=== PATIENT | female | born 1950 | race Caucasian/White ===

== ENCOUNTER → 2017-09-14 | Outpatient (CLI) | payer MEDICARE, OTHER ==
[~2017-09-14] MED LIST: ASPI-1471 PO; CALC600T63 PO; CHOL500045 PO; GEMF600T91 PO; IOPAMIDOL 76% 75 ML INFUS BTL 75 ML ONE; LEVO50TA86 PO; LEVO750T44 PO; MULT-1372 PO; OMEG300C PO; PRED20TA6 PO; SIMV-49 PO
[2017-09-14 09:46] LABS: PLATELET COUNT, AUTOMATED 291 K/uL (150-450)
[2017-09-14 10:31] LABS: LDL CHOLESTEROL 87 mg/dl
--- NOTE | 2017-09-14 16:44 | RADIOLOGY IMAGING REPORT ---
FACILITY: [facility] PATIENT NAME: Perla Lopez : 1950 MR: [id number] V: [id number] EXAM DATE: ORDERING PHYSICIAN: THALIA SHULTZ TECHNOLOGIST: Location: [facility] Patient: Perla Lopez : 1950 Visit/Account:[id number] Date of Sevice: 09/14/2017 CHEST W CONTRAST History: Multiple pulmonary nodules, smoker, six month follow-up TECHNIQUE: Contiguous axial images were performed through the chest to the level of the adrenal gla nds following the administration of IV contrast. Coronal and sagittal reformatting was also perform ed. Dose Lowering Technique One of the following dose optimization techniques was utilized in the performance of this exam: Autom ated exposure control; adjustment of the mA and/or kV according to the patient's size; or use of an i terative reconstruction technique. Specific details can be referenced in the facility's radiology C T exam operational policy. Contrast: 75 mL Isovue-[id number] COMPARISON STUDIES: CT chest March 26, 2017. Lungs / Pleura: Mild emphysematous changes again seen throughout the lungs. The previously noted 9 mm groundglass nodule in the right upper lobe appears relatively unchanged a nd is best seen on image 103 of series 4. Previously noted 5 mm groundglass focus in the anterior left apex appears unchanged and is best seen on image 50 Previously noted 4 to 5 mm nodule anterior aspect right upper lobe is relatively unchanged best seen on image 79. There has however been development of innumerable pulmonary nodules scattered throughout both lungs l argest in the left upper lobe measuring 8.5 x 5.5 mm best seen on image 70. These finds are extremely concerning for pulmonary metastases Mediastinum/nodes: negative. Heart and vessels: Circumferential soft plaque at the origin of the left subclavian artery is produc ing moderate narrowing. Facets are calcifications are seen within the thoracic aorta and branch vess els including the coronary arteries. Musculoskeletal / Body wall: Degenerative changes of thoracic spine Upper abdomen: There is a small paraesophageal hernia and mild thickening of the lower esophagus Fatty infiltration of the liver. Incompletely imaged are postsurgical changes from a cholecystectomy Bilateral adrenal thickening appears some are to the prior study IMPRESSION: There has been development of innumerable noncalcified pulmonary nodules scattered throughout both mary ngs with the largest measuring 8.5 x 5.5 mm. These findings are extremely concerning for pulmonary m etastases Previously noted groundglass nodules in the right upper and left upper lobes remain unchanged Mild centrilobular emphysema Additional chronic findings as described above Report Dictated By: Cesilia Meza MD at 09/14/2017 4:23 PM Report E-Signed By: Cesilia Meza MD at 09/14/2017 4:40 PM WSN:[email or web address]
== END ==
LOC: CT 00:51
PROVIDERS: ATTEND Nurse Practitioner Family
DX: J98.4 Other disorders of lung (principal); Z82.49 Family history of ischemic heart disease and other diseases of the circulatory system; E78.00 Pure hypercholesterolemia, unspecified; D51.0 Vitamin B12 deficiency anemia due to intrinsic factor deficiency; D45 Polycythemia vera; E78.1 Pure hyperglyceridemia; E03.9 Hypothyroidism, unspecified; E55.9 Vitamin D deficiency, unspecified
CPT/HCPCS: 36415; 71260; 82306; 82607; 84443; 85025; Q9967; 82040; 82247; 82310; 82374; 82435; 82465; 82565; 82947; 83718; 84075; 84132; 84155; 84295; 84450; 84460; 84478; 84520

== ENCOUNTER → 2017-09-30 | Outpatient (CLI) | payer MEDICARE, OTHER ==
[~2017-09-30] MED LIST changes: +GADOBENATE 529MG/1ML 15ML VIAL IVP ONE; -IOPAMIDOL 76% 75 ML INFUS BTL 75 ML ONE
--- NOTE | 2017-09-30 13:14 | RADIOLOGY IMAGING REPORT ---
[place] [facility] [place] NAME: Perla Lopez : 1950 MR: [id number] V: [id number] EXAM DATE: ORDERING PHYSICIAN: TRICIA BALBUENA TECHNOLOGIST: Location: [facility] Patient: Perla Lopez : 1950 Visit/Account:[id number] Date of Sevice: 09/30/2017 BRAIN W W/O CONTRAST Comparisons: None. Additional pertinent history: Ataxia TECHNIQUE: Multiplanar, multisequence brain MRI was performed with and without gadolinium contrast. CONTRAST: 13 ml of MultiHance. FINDINGS: Sagittal midline structures and craniocervical junction: Negative. Midline shift: None. Ventricles: Negative. Brain parenchyma: Diffusion weighted imaging: Negative. Gradient sequence: Negative. T2 weighted FLAIR images: Scattered foci of abnormal increased T2 signal within the periventricular and subcortical white matter, nonspecific but likely representing small vessel ischemic change on a chronic basis. Extra-axial spaces: Mild cerebral atrophy. Dural venous sinuses and major arterial flow voids: Negative. Intracranial enhancement: Negative.. Mastoid air cells and paranasal sinuses: Patchy increased T2 signal within the mastoid air cells bila terally. Surrounding soft tissues and orbits: Negative. Impression: 1. Age related changes as described above. 2. No evidence of acute intracranial pathology. Report Dictated By: John Lassiter MD at 09/30/2017 1:06 PM Report E-Signed By: John Lassiter MD at 09/30/2017 1:11 PM WSN:[email or web address]
== END ==
LOC: MRI 04:20
PROVIDERS: ATTEND Internal Medicine Pulmonary Disease
DX: G31.9 Degenerative disease of nervous system, unspecified (principal)
CPT/HCPCS: 70553; A9577

== ENCOUNTER → 2017-09-30 | Outpatient (CLI) | payer MEDICARE, OTHER ==
[~2017-09-30] MED LIST changes: -GADOBENATE 529MG/1ML 15ML VIAL IVP ONE
--- NOTE | 2017-10-01 15:45 | RADIOLOGY IMAGING REPORT ---
FACILITY: [facility] PATIENT NAME: CARLOS DAVIS : [id number] MR: [id number] V: [id number] EXAM DATE: [id number] ORDERING PHYSICIAN: THALIA SHULTZ TECHNOLOGIST: Sherrie Caicedo PROCEDURE:BILATERAL DIGITAL SCREENING MAMMOGRAM WITH CAD ASSISTED INTERPRETATION & 3D TOMOSYNTHESIS COMPARISON:Prior mammograms dated 09/21/16, 09/06/15, 03/15/14, 02/18/12 INDICATIONS:SCREENIN FINDINGS: A small amount of fibroglandular tissue is seen throughout the breasts. The parenchymal pattern has remained stable allowing for difference in mammographic technique & patient positioning. There is no evidence of malignant appearing mass, malignant appearing calcification or other secondary sign of malignancy in either breast. DIAGNOSTIC CATEGORY 1--NEGATIVE. RECOMMENDATIONS: ROUTINE MAMMOGRAM AND CLINICAL EVALUATION. IMPRESSION: BIRADS 1: Negative. No significant abnormality is seen. Dictated by: Cesilia Meza M.D. on 09/30/2017 at 15:01 Transcribed by: IVONNE on 10/01/2017 at 8:03 Approved by: Cesilia Meza M.D. on 10/01/2017 at 15:44 [facility]
== END ==
LOC: MAMO 09-22 02:26
PROVIDERS: ATTEND Nurse Practitioner Family
DX: Z12.31 Encounter for screening mammogram for malignant neoplasm of breast (principal)
CPT/HCPCS: 77063; 77067

== ENCOUNTER → 2017-10-04 | Outpatient (CLI) | payer MEDICARE, OTHER | LOC: LAB 10:32 | PROVIDERS: ATTEND Nurse Practitioner Family | DX: J44.9 Chronic obstructive pulmonary disease, unspecified (principal); J98.4 Other disorders of lung; Z87.891 Personal history of nicotine dependence | CPT/HCPCS: 36415; 86635 ==

== ENCOUNTER → 2017-12-15 | Outpatient (CLI) | payer MEDICARE, OTHER ==
--- NOTE | 2017-12-15 13:37 | RADIOLOGY IMAGING REPORT ---
FACILITY: [facility] PATIENT NAME: Perla Lopez : 1950 MR: [id number] V: [id number] EXAM DATE: ORDERING PHYSICIAN: TRICIA BALBUENA TECHNOLOGIST: Location: [facility] [place] Patient: Perla Lopez : 1950 Visit/Account:[id number] Date of Sevice: 12/15/2017 CHEST W/O CONTRAST History: Lung nodule TECHNIQUE: Contiguous axial images were performed through the chest to the level of the adrenal gla nds. No IV contrast was administered. Coronal and sagittal reformatting was also performed. Dose Lowe ring Technique One of the following dose optimization techniques was utilized in the performance of this exam: Autom ated exposure control; adjustment of the mA and/or kV according to the patient's size; or use of an i terative reconstruction technique. Specific details can be referenced in the facility's radiology C T exam operational policy. COMPARISON STUDIES: September 14, 2017. Lungs / Pleura: One compared to the prior chest CT all of the innumerable noncalcified pulmonary no dules present previously have either decreased in size or completely resolved. No new nodules are id entified. The groundglass nodule measuring 9 mm in the right upper lobe has remained stable. There is no evidence of pleural effusions.. Emphysematous changes again seen throughout the lungs Mediastinum/nodes: negative. Heart and vessels: Moderate vascular calcifications again seen at the aortic arch and branch vessels . Mild calcifications again noted in the coronary arteries Musculoskeletal / Body wall: Degenerative changes of the thoracic spine Upper abdomen: Hiatal hernia with thickening of the lower esophagus again seen. There are postsurg ical changes from a cholecystectomy. Bilateral adrenal thickening IMPRESSION: The previously noted innumerable noncalcified pulmonary nodules have either completely resolved or de creased in size. If the patient has a history of malignancy with interval treatment this represents a response to therapy. There is no history of malignancy with interval treatment this may have repre sented an acute infectious/inflammatory process. Mild centrilobular emphysema again seen Report Dictated By: Cesilia Meza MD at 12/15/2017 12:01 PM Report E-Signed By: Cesilia Meza MD at 12/15/2017 1:33 PM WSN:[email or web address]
== END ==
LOC: CT 01:58
PROVIDERS: ATTEND Internal Medicine Pulmonary Disease
DX: R91.1 Solitary pulmonary nodule (principal)
CPT/HCPCS: 71250

== ENCOUNTER → 2017-12-15 | Outpatient (CLI) | payer MEDICARE, OTHER ==
[2017-12-15 10:17] LABS: LDL CHOLESTEROL 66 mg/dl
== END ==
LOC: LAB 08:57
PROVIDERS: ATTEND Nurse Practitioner Family
DX: E87.8 Other disorders of electrolyte and fluid balance, not elsewhere classified (principal); E53.8 Deficiency of other specified B group vitamins; R53.81 Other malaise; E78.00 Pure hypercholesterolemia, unspecified
CPT/HCPCS: 36415; 82040; 82247; 82310; 82374; 82435; 82465; 82565; 82607; 82947; 83718; 84075; 84132; 84155; 84295; 84450; 84460; 84478; 84520; 85027

== ENCOUNTER → 2018-02-08 | Outpatient (CLI) | payer MEDICARE, OTHER ==
[~2018-02-08] MED LIST changes: -GEMF600T91 PO; +GEMF600T92 PO
[2018-02-08 11:24] LABS: PLATELET COUNT, AUTOMATED 351 K/uL (150-450)
[2018-02-08 11:51] LABS: LDL CHOLESTEROL 56 mg/dl
== END ==
LOC: LAB 10:47
PROVIDERS: ATTEND Nurse Practitioner Family
DX: M93.90 Osteochondropathy, unspecified of unspecified site (principal); Z82.49 Family history of ischemic heart disease and other diseases of the circulatory system; E78.00 Pure hypercholesterolemia, unspecified; J98.4 Other disorders of lung; D51.0 Vitamin B12 deficiency anemia due to intrinsic factor deficiency; E03.9 Hypothyroidism, unspecified; E55.9 Vitamin D deficiency, unspecified
CPT/HCPCS: 36415; 82040; 82247; 82306; 82310; 82374; 82435; 82465; 82565; 82607; 82947; 83718; 84075; 84132; 84155; 84295; 84443; 84450; 84460; 84478; 84520; 85025

== ENCOUNTER → 2018-08-31 | Outpatient (CLI) | payer MEDICARE, OTHER ==
[~2018-08-31] MED LIST changes: -GEMF600T92 PO; +GEMF600T96 PO
--- NOTE | 2018-08-31 15:47 | RADIOLOGY IMAGING REPORT ---
FACILITY: [facility] PATIENT NAME: Perla Lopez : 1950 MR: [id number] V: [id number] EXAM DATE: ORDERING PHYSICIAN: ANNIKA KEITH TECHNOLOGIST: Location: [facility] [place] Patient: Perla Lopez : 1950 Visit/Account:[id number] Date of Sevice: 08/31/2018 EXAMINATION: CT head without IV contrast HISTORY: Headaches. COMPARISON: Brain MRI from 09/30/2017. TECHNIQUE: Contiguous axial images were obtained from the skull base to the vertex without intraven ous contrast. Sagittal and coronal reformatted images are also submitted. One of the following dose optimization techniques was utilized in the performance of this exam: Autom ated exposure control; adjustment of the mA and/or kV according to the patient's size; or use of an i terative reconstruction technique. Specific details can be referenced in the facility's radiology C T exam operational policy. FINDINGS: Brain volume: Normal. Ventricles: Normal. Acute ischemic changes: None. Hemorrhage: No acute intracranial hemorrhage. Masses/edema: None. Jimenez-white: Negative. White matter: Patchy hypodensities in the deep white matter bilaterally. Vessels: Mild atherosclerotic calcifications of the carotid siphons. Extra-axial: Negative. Calvarium/scalp: Heterogeneous with several small scattered lucencies. Skull base/visualized face: Negative. Visualized sinuses/orbits: Negative. IMPRESSION: 1. No intracranial mass lesion or hemorrhage. No CT evidence of acute infarct. 2. Mild to moderate nonspecific white matter disease is suspicious for chronic small vessel ischemia. 3. Heterogeneous calvarium with scattered small lucencies. This could be due to mild osteopenia, alth ough multiple myeloma could have a similar appearance. These findings were discussed with ANNIKA KEITH at 08/31/2018 3:38 PM. Report Dictated By: Argentina Cantu MD at 08/31/2018 3:35 PM Report E-Signed By: Argentina Cantu MD at 08/31/2018 3:41 PM WSN:[email or web address]
== END ==
LOC: CT 14:32
PROVIDERS: ATTEND Nurse Practitioner Family
DX: R03.0 Elevated blood-pressure reading, without diagnosis of hypertension (principal); R51 Headache; R20.2 Paresthesia of skin; Z82.3 Family history of stroke
CPT/HCPCS: 70450

== ENCOUNTER → 2018-09-19 | Outpatient (CLI) | payer MEDICARE, OTHER ==
[2018-09-19 10:52] LABS: PLATELET COUNT, AUTOMATED 468 K/uL (150-450)
[2018-09-19 14:08] LABS: LDL CHOLESTEROL 61 mg/dl
== END ==
LOC: LAB 10:06
PROVIDERS: ATTEND Nurse Practitioner Family
DX: E78.00 Pure hypercholesterolemia, unspecified (principal); R53.81 Other malaise; E53.8 Deficiency of other specified B group vitamins; E55.9 Vitamin D deficiency, unspecified; E87.8 Other disorders of electrolyte and fluid balance, not elsewhere classified; R73.01 Impaired fasting glucose; R93.0 Abnormal findings on diagnostic imaging of skull and head, not elsewhere classified
CPT/HCPCS: 36415; 82040; 82247; 82306; 82310; 82374; 82435; 82465; 82565; 82607; 82784; 82947; 83036; 83718; 84075; 84132; 84155; 84165; 84295; 84443; 84450; 84460; 84478; 84520; 85025; 86334

== ENCOUNTER → 2018-10-03 | Outpatient (CLI) | payer MEDICARE, OTHER ==
[~2018-10-03] MED LIST changes: +ALB18R INH; +AMLO1TAB53 PO; +AMLO2.5T78 PO; +ATOR10TA24 PO; +ATOR10TA65 PO; +BIFI4CAP2 PO; +CALC-32 PO; +CHOL10005 PO; +CYA1000 PO; +FLUT1DIS28 IH; +LISI20TA29 PO; +TIO18R INH; +UBID100C48 PO
[2018-10-03 11:38] LABS: PLATELET COUNT, AUTOMATED 482 K/uL (150-450)
== END ==
LOC: LAB 11:07
PROVIDERS: ATTEND Surgery
DX: C90.00 Multiple myeloma not having achieved remission (principal)
CPT/HCPCS: 36415; 85025

== ENCOUNTER → 2018-10-05 | Outpatient (CLI) | payer MEDICARE, OTHER ==
--- NOTE | 2018-10-05 15:48 | RADIOLOGY IMAGING REPORT ---
FACILITY: [facility] PATIENT NAME: Perla Lopez : 1950 MR: [id number] V: [id number] EXAM DATE: ORDERING PHYSICIAN: HAMILTON KIRKLAND TECHNOLOGIST: Location: [facility] [place] Patient: Perla Lopez : 1950 Visit/Account:[id number] Date of Sevice: 10/05/2018 Exam type: BONE SURVEY COMPLETE History: Multiple myeloma staging Comparison: None. Findings: Lateral view of cervical spine reveals mild spondylotic changes although no evidence of acute fractur es or subluxations. AP and lateral views of the thoracic spine reveal moderate spondylotic changes although no gross evid ence of acute fractures or subluxations. AP and lateral views of the thoracic spine reveal moderate spondylotic changes although no evidence o f acute fractures or subluxations. Lateral view of the skull reveals numerous small lucencies throughout the calvarium. There are mild to moderate degenerative changes of the shoulder joints although no evidence of acute fracture. There is a faint lucency in the proximal diaphysis of the left humerus measuring 1.6 x 0.8 cm. AP view the pelvis demonstrates mild degenerative changes at the hip joints no definite lytic lesions identified in the femurs IMPRESSION: 1. There multiple small lucencies seen in the calvarium which may be secondary to patient's multiple myeloma There is a faint lucency in the proximal diaphysis of the left humerus measuring approximately 1.6 x 0.8 cm which may represent a lytic lesion Report Dictated By: Cesilia Meza MD at 10/05/2018 3:38 PM Report E-Signed By: Cesilia Meza MD at 10/05/2018 3:43 PM WSN:[email or web address]
== END ==
LOC: RAD 12:50
PROVIDERS: ATTEND Internal Medicine Hematology
DX: E88.09 Other disorders of plasma-protein metabolism, not elsewhere classified (principal)
CPT/HCPCS: 77075

== ENCOUNTER 2018-10-13 16:18 | Outpatient (RCR) | payer MEDICARE, OTHER ==
[2018-09-29 10:23] VITALS: BP 162/71
--- NOTE | 2018-09-29 22:38 | ONCOLOGY CONSULTATION ---
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 ONCOLOGY HISTORY Patient is a 68-year-old female who presented to [facility] with a headache, so the patient had a CT head done on the August, which showed heterogenous calvarium with scattered small lucencies, suggestive of either mild osteopenia versus multiple myeloma. Patient had a serum protein electrophoresis which showed a faint band at IgG kappa, suggestive of a specific immune response or early monoclonal protein, and her IgG level was low at 663 while IgA and IgM were within the normal range. Patient also had some neuropathic symptoms of right upper extremity lately. PAST MEDICAL HISTORY 1. Hypothyroidism. 2. Hypertension. 3. Hypercholesterolemia. 4. Hypertriglyceridemia. 5. Thrombocytopenia. 6. Diverticulosis. 7. COPD. 8. 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 PAST SURGICAL HISTORY 1. Cholecystectomy. 2. Hysterectomy with ovaries intact done in 1979. 3. Tonsillectomy as a child. FAMILY HISTORY Mother had uterine cancer at age of 50 and polycythemia vera. SOCIAL HISTORY Patient is with one child. She is a retired RN. She smokes about one pack a day for 50 years. She drinks three to four glasses of wine per day. No abuse of illicit drugs. CURRENT MEDICATIONS 1. Gemfibrozil 600 mg twice daily. 2. [place] 3 fatty acid 1200 mg twice daily. 3. Levothyroxine 50 mcg daily. 4. Multivitamin one tablet daily. 5. Aspirin 81 mg every other day. ALLERGIES AUGMENTIN which caused diarrhea and BIAXIN which caused some pain. REVIEW OF SYSTEMS CONSTITUTIONAL: No appetite or weight change. No fever, chills, or sweating. No recent infection. HEENT: Ears: No tinnitus or hearing problem. Nose: No nasal discharge or epistaxis. Throat: No sore throat or mouth ulcers. Eyes: No diplopia or visual changes. RESPIRATORY: No shortness of breath. Patient has some dry cough. No expectoration or hemoptysis. CARDIOVASCULAR: No chest pain, orthopnea, or paroxysmal nocturnal dyspnea (PND). No edema. No palpitations. GASTROINTESTINAL: No nausea or vomiting. No diarrhea. She has occasional constipation. No change in bowel movements. No heartburn or swallowing difficulties. No abdominal pain. No jaundice. No hematemesis, melena, or rectal bleeding. GENITOURINARY: No hematuria or dysuria. MUSCULOSKELETAL: She has leg cramps. NEUROLOGIC: She has tingling in the right upper extremity with weakness, which is getting better lately. She has also headache. No convulsions. HEMATOLOGIC/LYMPHATIC: She bruises easily. No weakness or fatigue. No enlarged lymph nodes. SKIN: No skin rash or lumps. PSYCHIATRIC: No anxiety or depression. PHYSICAL EXAMINATION GENERAL: Looks stable. Well developed, well nourished, and in no acute distress. VITAL SIGNS: Blood pressure 162/71, pulse 84 per minute, respirations 16 per minute, temperature 97.8, pulse ox 91% on room air. HEENT: Head: Atraumatic. No sinus tenderness to palpation. Eyes: No icterus or conjunctivitis. Mouth and Throat: No oral thrush or mucositis. NECK: Supple. No cervical or supraclavicular lymphadenopathy. LUNGS: Clear to auscultation and percussion bilaterally. HEART: Regular rate and rhythm. No gallops, murmurs, clicks, or rubs. ABDOMEN: Soft and lax. No tenderness. No hepatosplenomegaly. No masses. EXTREMITIES: No cyanosis, clubbing, or edema. LYMPHATICS: No peripheral lymphadenopathy. NEUROLOGIC: Conscious, alert, and oriented times three. No focal motor or sensory deficits. PSYCHIATRIC: Mood and affect appear normal. SKIN: No skin rash, bruise, or purpuric eruption. ASSESSMENT Plasma cell dyscrasia. Could be due to monoclonal gammopathy of unknown significance (MGUS) versus multiple myeloma and other plasma cell dyscrasia diseases likely amyloidosis, cryoglobulinemia. Her CT scan of the head done on the August did reveal heterogenous calvarium with scattered small lucencies, suggestive of either osteoporosis versus multiple myeloma, and for this reason also, I am planning to get a DEXA scan for further evaluation. As the patient showed a faint band in IgG kappa, I am planning to do a full workup for the multiple myeloma including 24-hour urine for Bence Ferro protein. I am planning also to get a skeletal bone survey. I am planning also to proceed with bone marrow aspiration biopsy. I will check her CBC, chemistry panel, LDH, uric acid. I will see the patient after that for further evaluation and management. PLAN 1. CBC, chem panel, LDH, uric acid. 2. Myeloma profile. 3. 24-hour urine for Bence Ferro protein. 4. Skeletal bone survey. 5. Bone marrow aspiration biopsy. 6. DEXA scan. 7. Patient to return after the above for further evaluation and management. 8. Patient to contact us for any new concerns or complaints. MTDD
[2018-10-05 11:59] VITALS: BP 128/65
[~2018-10-13] VITALS: Ht 160 cm; Wt 60.0 kg
[2018-10-13 16:28] VITALS: BP 130/76
--- NOTE | 2018-10-14 00:01 | EL-TARAB[facility] ONCOLOGY NOTE ---
EVENT DATE: October 13, 2018 DIAGNOSES 1. Essential thrombocythemia with positive JAK2 mutation for V617F mutation. 2. Monoclonal gammopathy, unknown significance. CHIEF COMPLAINT Patient is here today for followup of her blood work done to rule out multiple myeloma. ONCOLOGY HISTORY Patient is a 68-year-old female who presented to [facility] with a headache, so the patient had a CT head done on the August, which showed heterogenous calvarium with scattered small lucencies, suggestive of either mild osteopenia versus multiple myeloma. Patient had a serum protein electrophoresis which showed a faint band at IgG kappa, suggestive of a specific immune response or early monoclonal protein, and her IgG level was low at 663 while IgA and IgM were within the normal range. Patient also had some neuropathic symptoms of right upper extremity lately. Repeat CBC showed white count 11.5, hemoglobin 15.9, hematocrit 47.1, platelet 482. LDH was normal at 583. Uric acid 7. Skeletal bone survey on 05 Oct 2018 showed multiple small lucencies in the calvarium with faint lucency in the proximal diaphysis of the left humerus, 1.6 cm, which could represent a lytic lesion. Serum protein electrophoresis was repeated, and immunoelectrophoresis shows a faint band in the IgG kappa suggestive of a specific immune response or an early monoclonal protein. IgG was low at 708; IgA was 231, within the normal range; IgM was 106, which was also within the normal range. Bone marrow aspiration biopsy done on 03 Oct 2018 showed trilineage hematopoiesis. There was mild megakaryocytic hyperplasia with mild dysmegakaryopoiesis, with small clustering. The megakaryocytes are variable in size, including occasional large hyperlobulated forms. There was no evidence of leukemia, lymphoma, or multiple myeloma. JAK2 mutation analysis came back positive for V617F mutation, with 25.64% mutant allele dictated, consistent with diagnosis of essential thrombocythemia. HISTORY OF PRESENT ILLNESS Patient is here today for followup of her blood work done and bone marrow biopsy for evaluation of her plasma cell dyscrasia. Respiratory: She has occasional cough. Musculoskeletal: She has occasional leg pain and leg cramps. She also has occasional numbness in her fingers. She bruises easily. PAST MEDICAL HISTORY 1. Hypothyroidism. 2. Hypertension. 3. Hypercholesterolemia. 4. Hypertriglyceridemia. 5. Thrombocytopenia. 6. Diverticulosis. 7. COPD. 8. Low-grade, low-stage uterine cancer with no treatment recommendation after her surgery. PAST SURGICAL HISTORY 1. Cholecystectomy. 2. Hysterectomy with ovaries intact done in 1979. 3. Tonsillectomy as a child. FAMILY HISTORY Mother had uterine cancer at age of 50 and polycythemia vera. SOCIAL HISTORY Patient is with one child. She is a retired RN. She smokes about one pack a day for 50 years. She drinks three to four glasses of wine per day. No abuse of illicit drugs. CURRENT MEDICATIONS 1. Gemfibrozil 600 mg twice daily. 2. [place] 3 fatty acid 1200 mg twice daily. 3. Levothyroxine 50 mcg daily. 4. Multivitamin one tablet daily. 5. Aspirin 81 mg every other day. ALLERGIES AUGMENTIN, which caused diarrhea, and BIAXIN, which caused some pain. REVIEW OF SYSTEMS CONSTITUTIONAL: No appetite or weight change. No fever, chills or sweating. No recent infection. HEENT: Ears: No tinnitus or hearing problem. Nose: No nasal discharge or epistaxis. Throat: No sore throat or mouth ulcers. Eyes: No diplopia or visual changes. RESPIRATORY: She has occasional cough. CARDIOVASCULAR: No chest pain, orthopnea, or paroxysmal nocturnal dyspnea (PND). No edema. No palpitations. GASTROINTESTINAL: No nausea or vomiting. No diarrhea or constipation. No change in bowel movements. No heartburn or swallowing difficulties. No abdominal pain. No jaundice. No hematemesis, melena or rectal bleeding. GENITOURINARY: No hematuria or dysuria. MUSCULOSKELETAL: She has leg cramps. NEUROLOGICAL: She has numbness in her fingers. HEMATOLOGIC/LYMPHATIC: She bruises easily. SKIN: No skin rash or lumps. PSYCHIATRIC: No anxiety or depression. PHYSICAL EXAMINATION GENERAL: Looks stable. Well-developed, well-nourished, and in no acute distress. VITAL SIGNS: Blood pressure 130/76, pulse 89 per minute, respirations 16 per minute, temperature 97.9, pulse ox 87% on room air. HEENT: Head: Atraumatic. No sinus tenderness to palpation. Eyes: No icterus or conjunctivitis. Mouth and throat: No oral thrush or mucositis. NECK: Supple. No cervical or supraclavicular lymphadenopathy. LUNGS: Clear to auscultation and percussion bilaterally. HEART: Regular rate and rhythm. No gallops, murmurs, clicks or rubs. ABDOMEN: Soft and lax. No tenderness. No hepatosplenomegaly. No masses. EXTREMITIES: No cyanosis, clubbing or edema. LYMPHATICS: No peripheral lymphadenopathy. NEUROLOGICAL: Conscious, alert and oriented times three. No focal motor or sensory deficits. PSYCHIATRIC: Mood and affect appear normal. SKIN: No skin rash, bruise or purpuric eruption. DIAGNOSTIC DATA CBC showed a white count of 11.5, hemoglobin 15.9, hematocrit 47.1, platelet 482,000. Skeletal bone survey on 05 Oct 2018 showed multiple small lucencies in the calvarium with faint lucency in the proximal diaphysis of the left humerus, 1.6 cm, which could represent a lytic lesion. The skeletal bone survey with the other labs is not consistent with the diagnosis of multiple myeloma. Bone marrow aspiration biopsy done on 03 Oct 2018 came back positive for essential thrombocythemia with positive JAK2 V617F mutation. There is no evidence of leukemia, lymphoma, or multiple myeloma. Serum protein electrophoresis shows a faint band in the IgG kappa, suggestive of a specific immune response or early monoclonal protein. Her IgM and IgA levels are normal, but IgG was a little bit low at 708. She had a CT head done on 31 August 2018, which showed heterogeneous calvarium with scattered small lucencies. This could be due to mild osteopenia, although multiple myeloma could have a similar appearance, so I believe, with the other testing, this could be due to osteopenia rather than multiple myeloma. ASSESSMENT 1. Essential thrombocythemia with positive JAK2 for V617F mutation by the bone marrow aspiration biopsy done on 03 Oct 2018. The bone marrow showed mildly increased megakaryocytes in number, with occasional loose clustering. Dense clustering is not appreciated. The megakaryocytes are variable in size, including occasional large hyperlobulated forms. Those results are consistent with essential thrombocythemia, given that the patient has mildly elevated platelet count at 482,000. With her count currently, there is no indication for treatment of her essential thrombocythemia, but patient is advised to use baby aspirin 81 mg daily. I am planning to see her again in three months with another CBC at that time. If the patient has a very high platelet count, like over 800,000, I will consider starting to treat her for that. I explained that to the patient. She is agreeable with the plan of management. 2. Plasma cell dyscrasia, most probably due to monoclonal gammopathy of undetermined significance. Her repeat serum protein electrophoresis did reveal a faint band in the IgG kappa suggestive of a specific immune response or early monoclonal protein. The changes in her skeletal bone survey in the skull, with multiple lucencies in the calvarium, with faint lucency in the diaphysis of the left humerus, most probably due to osteopenia rather than multiple myeloma, as there is no other evidence of multiple myeloma, and to make the diagnosis of multiple myeloma, patient has to have two out of the three parameters: the monoclonal protein, plasmacytosis in the bone marrow more than 10% (which is not the case with her bone marrow aspiration biopsy done on 03 Oct 2018), and the third criterion is the lytic bone lesions. I am planning to monitor her myeloma parameters every six months and will consider repeat testing if there will be increase in her monoclonal protein. PLAN 1. Continue followup. 2. Patient to return in three months with CBC. 3. Myeloma profile to be checked every six months. 4. Patient to contact us for any new concerns or complaints. LOREE
== END 2018-12-27 ==
LOC: ONC 16:18
PROVIDERS: ATTEND Internal Medicine Hematology
DX: D69.6 Thrombocytopenia, unspecified (principal); E88.09 Other disorders of plasma-protein metabolism, not elsewhere classified; D47.2 Monoclonal gammopathy
CPT/HCPCS: 36415; 82232; 83615; 83883; 84550; 86334; G0463; 77075; 84156; 86335; 88184; 88185; 88237; 88264; 99202; 99212

== ENCOUNTER → 2018-11-08 | Outpatient (CLI) | payer MEDICARE, OTHER ==
--- NOTE | 2018-11-08 14:12 | RADIOLOGY IMAGING REPORT ---
FACILITY: [facility] PATIENT NAME: Perla Lopez : 1950 MR: [id number] V: [id number] EXAM DATE: ORDERING PHYSICIAN: HAMILTON KIRKLAND TECHNOLOGIST: Location: [facility] - [place] Patient: Perla Lopez : 1950 Visit/Account:[id number] Date of Sevice: 11/08/2018 CT CHEST W/O CONTRAST History: Lung nodule TECHNIQUE: Contiguous axial images were performed through the chest to the level of the adrenal gla nds. No IV contrast was administered. Coronal and sagittal reformatting was also performed.Dose Lower ing Technique One of the following dose optimization techniques was utilized in the performance of this exam: Autom ated exposure control; adjustment of the mA and/or kV according to the patient's size; or use of an i terative reconstruction technique. Specific details can be referenced in the facility's radiology C T exam operational policy. COMPARISON STUDIES: December 15, 2017. Lungs / Pleura: The 9 mm groundglass opacity in the anterior right upper lobe has remained stable. . The previously noted pulmonary nodules have either remained stable or decreased in size. Emphysematous changes again noted throughout the lungs. Mediastinum/nodes: negative. Heart and vessels: Moderate calcifications again seen at the aortic arch and branch vessels includin g the coronary arteries Musculoskeletal / Body wall: There spondylotic changes of the thoracic spine Upper abdomen: Postsurgical changes from a cholecystectomy Small hiatal hernia Bilateral adrenal thickening IMPRESSION: Prestenotic pulmonary nodules have either remained stable or decreased in size. 9 mm groundglass opacity in the right upper lobe has remained stable Emphysematous changes throughout the lungs Moderate vascular calcifications Additional chronic findings as described Report Dictated By: Cesilia Meza MD at 11/08/2018 1:51 PM Report E-Signed By: Cesilia Meza MD at 11/08/2018 2:06 PM WSN:[email or web address]
--- NOTE | 2018-11-09 02:21 | RADIOLOGY IMAGING REPORT ---
FACILITY: [facility] - [place] PATIENT NAME: Perla Lopez : 1950 MR: [id number] V: [id number] EXAM DATE: ORDERING PHYSICIAN: HAMILTON KIRKLAND TECHNOLOGIST: Location: [facility] - [place] Patient: Perla Lopez : 1950 Visit/Account:[id number] Date of Sevice: 11/08/2018 DEXA Scan HISTORY: September 21, 2016. COMPARISON: Postmenopausal. LUMBAR SPINE: The bone mineral density (BMD) measured from L1-L4 correlates with a T-score of 2.2 which is normal a s defined by the World Health Organization. T score previously measured 1. HIP: Bone mineral density (BMD) measured in the left total hip region correlates with a T score of -2.2 wh ich is osteopenia as defined by the World Health Organization. The corresponding risk of fracture in the hip is increased compared with a young adult reference population. Hip bone mineral density has decreased by 6.4% compared to prior, change of 5% is considered significant. Bone mineral density (BMD) measured in the Femoral Neck region measures 0.768 g/cm2, this is in the o steopenia range. IMPRESSION: 1. Lumbar spine: Normal. Lumbar bone mineral density has increased compared to prior. 2. Left Total Hip: Osteopenia. Left hip bone mineral density has decreased compared to prior. 3. Femoral Neck: Bone Mineral Density is 0.768 g/cm2. The next DEXA scan of this patient should include the following sites: L1-L4 and the left hip. FRAX? WHO Fracture Risk Assessment Tool link: <http://www.shef.ac.uk/FRAX/tool.jsp?locationValue=9> PLEASE NOTE: 1) The World Health Organization defines low BMD as follows: T-score Normal > -1 Osteopenia < -1 and > -2.5 Osteoporosis < -2.5 without fractures Established osteoporosis < -2.5 with fractures 2) In general, you may wish to consider: Diagnosis Treatment Follow-up DEXA Normal BMD Prevention 2-3 years Osteopenia Prevention/therapy 1-2 years Osteoporosis Therapy Yearly 3) Fracture risk estimated from the T-score is more accurate for vertebral fractures (often spontane ous) than for hip fractures. Report Dictated By: Jose Kent MD at 11/09/2018 2:08 AM Report E-Signed By: Jose Kent MD at 11/09/2018 2:15 AM WSN:[id number]
--- NOTE | 2018-11-09 17:00 | RADIOLOGY IMAGING REPORT ---
FACILITY: [facility] PATIENT NAME: CARLOS DAVIS : [id number] MR: [id number] V: [id number] EXAM DATE: [id number] ORDERING PHYSICIAN: THALIA SHULTZ TECHNOLOGIST: Grazyna Flores PROCEDURE: BILATERAL DIGITAL SCREENING MAMMOGRAM WITH CAD ASSISTED INTERPRETATION & 3D TOMOSYNTHESIS. REASON FOR STUDY: Screening. FAMILY HISTORY OF BREAST CANCER: None. BREAST PROCEDURES/TREATMENTS: Patient states she had a benign biopsy but she is not sure of which breast. COMPARISON: 09/30/17, 09/21/16, 09/06/15, 03/15/14, 02/18/12. VIEWS OBTAINED: 2D & 3D full field CC & MLO. BREAST DENSITY: There are scattered areas of fibroglandular density throughout the breasts. MAMMOGRAM FINDINGS: The parenchymal pattern has remained stable allowing for difference in mammographic technique & patient positioning. IMPRESSION: BIRADS 1: Negative. DIAGNOSTIC CATEGORY 1--NEGATIVE. RECOMMENDATIONS: ROUTINE MAMMOGRAM AND CLINICAL EVALUATION. Dictated by: Cesilia Meza M.D. on 11/08/2018 at 16:46 Transcribed by: MILAN on 11/09/2018 at 8:17 Approved by: Cesilia Meza M.D. on 11/09/2018 at 16:57 [facility]
== END ==
LOC: RAD 01:02
PROVIDERS: ATTEND Internal Medicine Hematology
DX: Z12.31 Encounter for screening mammogram for malignant neoplasm of breast (principal); E88.09 Other disorders of plasma-protein metabolism, not elsewhere classified; M85.811 Other specified disorders of bone density and structure, right shoulder
CPT/HCPCS: 71250; 77063; 77067; 77080

== ENCOUNTER → 2018-11-08 | Outpatient (CLI) | payer MEDICARE, OTHER | LOC: MAMO 01:00 | PROVIDERS: ATTEND Nurse Practitioner Family | DX: E88.09 Other disorders of plasma-protein metabolism, not elsewhere classified (principal) ==

== ENCOUNTER → 2018-11-08 | Outpatient (CLI) | payer MEDICARE, OTHER ==
--- NOTE | 2018-11-14 14:12 | RADIOLOGY IMAGING REPORT ---
FACILITY: [facility] [place] PATIENT NAME: Perla Lopez : 1950 MR: [id number] V: [id number] EXAM DATE: ORDERING PHYSICIAN: TRICIA BALBUENA TECHNOLOGIST: Location: [facility] - [place] Patient: Perla Lopez : 1950 Visit/Account:[id number] Date of Sevice: 11/08/2018 CT CHEST W/O CONTRAST History: Lung nodule TECHNIQUE: Contiguous axial images were performed through the chest to the level of the adrenal gla nds. No IV contrast was administered. Coronal and sagittal reformatting was also performed.Dose Lower ing Technique One of the following dose optimization techniques was utilized in the performance of this exam: Autom ated exposure control; adjustment of the mA and/or kV according to the patient's size; or use of an i terative reconstruction technique. Specific details can be referenced in the facility's radiology C T exam operational policy. COMPARISON STUDIES: December 15, 2017. Lungs / Pleura: The 9 mm groundglass opacity in the anterior right upper lobe has remained stable. . The previously noted pulmonary nodules have either remained stable or decreased in size. Emphysematous changes again noted throughout the lungs. Mediastinum/nodes: negative. Heart and vessels: Moderate calcifications again seen at the aortic arch and branch vessels includin g the coronary arteries Musculoskeletal / Body wall: There spondylotic changes of the thoracic spine Upper abdomen: Postsurgical changes from a cholecystectomy Small hiatal hernia Bilateral adrenal thickening IMPRESSION: Prestenotic pulmonary nodules have either remained stable or decreased in size. 9 mm groundglass opacity in the right upper lobe has remained stable Emphysematous changes throughout the lungs Moderate vascular calcifications Additional chronic findings as described Report Dictated By: Cesilia Meza MD at 11/08/2018 1:51 PM Report E-Signed By: Cesilia Meza MD at 11/08/2018 2:06 PM WSN:[email or web address]
== END ==
LOC: CT 11:05
PROVIDERS: ATTEND Internal Medicine Pulmonary Disease
DX: R91.8 Other nonspecific abnormal finding of lung field (principal)
CPT/HCPCS: 71250